=== PATIENT | male | born 1970 | race Hispanic/Latino ===

== ENCOUNTER 2023-09-05 08:40 | Day surgery (SDC) | payer OTHER ==
[2023-09-02 09:41] LABS: BASOPHILS # (AUTO) 0.07 K/uL (0.00-0.20); BASOPHILS % (AUTO) 0.8 % (0.0-5.0); EOSINOPHILS # (AUTO) 0.21 K/uL (0.00-0.70); EOSINOPHILS % (AUTO) 2.5 % (0.0-8.0); HEMATOCRIT 50.9 % (42-54); IMMATURE GRANULOCYTE ABSOLUTE 0.04 K/uL (0-1); LYMPHOCYTES # (AUTO) 2.2 K/uL (1.0-4.8); MEAN CORPUSCULAR HEMOGLOBIN 31.6 pg (27.0-33.0); MEAN CORPUSCULAR HGB CONC 33.4 g/dL (32.0-36.0); MEAN CORPUSCULAR VOLUME 94.6 fL (79-99); MONOCYTES # (AUTO) 0.8 K/uL (0.1-1.0); MONOCYTES % (AUTO) 9.9 % (3.0-13.0); NEUTROPHILS # (AUTO) 5.1 K/uL (1.8-7.7); NEUTROPHILS % (AUTO) 60.3 % (40.0-77.0); PLATELET COUNT (AUTO) 170 K/uL (130-400); RED BLOOD CELL COUNT(AUTO) 5.38 MIL/uL (4.50-6.20); RED CELL DISTRIBUTION WIDTH 13.5 % (11.0-15.5); WHITE BLOOD COUNT (AUTO) 8.5 K/uL (4.8-10.8)
[2023-09-02 09:44] LABS: APPEARANCE,URINE CLEAR (CLEAR); BILIRUBIN,URINE NEGATIVE (NEGATIVE); COLOR,URINE YELLOW (YELLOW); GLUCOSE, URINE (UA) NEGATIVE (NEGATIVE); KETONES,URINE NEGATIVE (NEGATIVE); LEUKOCYTE ESTERASE ,URINE NEGATIVE Leu/uL (NEGATIVE); NITRATE,URINE NEGATIVE (NEGATIVE); OCCULT BLOOD,URINE NEGATIVE (NEGATIVE); PROTEIN,URINE NEGATIVE (NEGATIVE); UROBILINOGEN,URINE 0.2 mg/dL (0.2-1.0)
[2023-09-02 09:45] LABS: ADD UA MICROSCOPIC NO
[2023-09-02 09:50] LABS: POTASSIUM 3.9 mmol/L (3.5-5.1)
[2023-09-02 09:51] LABS: INR 1.06 (0.85-1.15); PROTHROMBIN TIME 12.2 SEC (9.6-11.6)
[2023-09-02 09:52] LABS: PARTIAL THROMBOPLASTIN TIME 32.8 SEC (26.3-35.5)
[2023-09-02 10:05] VITALS: BP 154/99; PULSE 59; RESP 19
[2023-09-02 10:07] LABS: B-TYPE NATRIURETIC PEPTIDE 6 pg/mL (0-100)
[2023-09-05] VITALS (8 sets, daily range): BP systolic 99–162; BP diastolic 54–100; PULSE 76–83; RESP 14–17
[~2023-09-05] VITALS: Ht 188 cm; Wt 133.4 kg
[~2023-09-05 08:40] MED LIST: ALLO100T PO; OLME20TA22 PO
[2023-09-05] MEDS ORDERED: 0.9%NACL 1000ML 1,000 ML IV ONE (10:04)
[2023-09-05] MEDS ORDERED: VERAPAMIL HCL 2.5 MG/ML VIAL ONE (15:10)
[2023-09-05] MEDS ORDERED: FENTANYL CITRATE PF 50 MCG/1 ML 2ML VIAL ONE ×2 (15:10→16:00)
[2023-09-05] MEDS ORDERED: MIDAZOLAM HCL 1 MG/ML 2ML VIAL ONE ×3 (15:10→16:00)
[2023-09-05] MEDS ORDERED: HEPARIN 10,000 UNIT/10ML (1,000 UNIT/ML) VIAL ONE (15:10)
[2023-09-05] MEDS ORDERED: LIDOCAINE HCL 400MG/20ML VIAL ONE (15:10)
[2023-09-05] MEDS ORDERED: IOHEXOL 350 MG/ML 100ML INFUS..BTL IV ONE (15:10)
[2023-09-05] MEDS ORDERED: HYDRALAZINE 20MG/ML VIAL ONE (16:21)
[2023-09-05] MEDS ORDERED: 0.9%NACL 1000ML 1,000 ML IV SCH (17:00)
[2023-09-05] MEDS ORDERED: HYDRALAZINE 20MG/ML VIAL IV PRN (17:00)
== END 2023-09-05 17:50 | disposition home or self-care (01) ==
LOC: DAH 08:40
PROVIDERS: ATTEND Student in an Organized Health Care Education/Training Program
DX: I25.118 Atherosclerotic heart disease of native coronary artery with other forms of angina pectoris (principal); I10 Essential (primary) hypertension; Z79.899 Other long term (current) drug therapy; Z98.890 Other specified postprocedural states
CPT/HCPCS: 80048; 83880; 85025; 85610; 85730; 81003; 36415; 71045; 93005; 93458; A4223 ×3; Q9965; C1887 ×2; C1769 ×2; C1894; J3010 ×2; J3490 ×2; J7030; J0360; J1644 ×2; J2250 ×3; Q9967; A4215; A4222; A4221; A4663; A4606; 99156; 99157